=== PATIENT | male | born 1945 | race Two or more races ===

== ENCOUNTER 2022-05-18 22:18 | Inpatient (IN) | payer MEDICARE, OTHER ==
[~2022-05-18] VITALS: Ht 165.1 cm; Wt 68.1 kg
[~2022-05-18 22:18] MED LIST: AMLO-213 PO; CARV25TA2 PO; FERR1TAB44 PO; FURO40TA5 PO; HYDR-4077 PO; LANS30TA4 PO; LEVO750T21 PO; LOSA100T31 PO; WARF4TAB72 PO
--- NOTE | 2022-05-18 22:40 | NUR ---
RT NOTE PT BROUGHT IN FOR SOB. PT PLACED ON BIPAP TRIAL PER CHERYL ORDER FOR POSSIBLE CHF EXACERBATION. NO DISTRESS ON BIPAP. SETTINGS 09/11 R12 40%. Addendum: 05/19/22 at 0015 by JOSH ISBELL RT Amended: Links added.
[2022-05-18 23:55] LABS: BASOPHILS % (AUTO) 0.6 % (0.0-2.0); EOSINOPHILS % (AUTO) 1.3 % (0.0-6.0); HEMATOCRIT 33 % (39-51); HEMOGLOBIN 9.9 g/dL (13.5-17.5); LYMPHOCYTES # (AUTO) 2.1 K/uL (0.8-4.8); MEAN CORPUSCULAR HGB CONC 30 g/dl (31.0-36.0); MEAN CORPUSCULAR VOLUME 70 fL (80-96); MONOCYTES # (AUTO) 0.8 K/uL (0.1-1.30); MONOCYTES % (AUTO) 9.5 % (2.0-12.0); NEUTROPHILS # (AUTO) 5.3 K/uL (1.8-8.9); NEUTROPHILS % (AUTO) 63.6 % (43.0-81.0); PLATELET COUNT (AUTO) 205 K/uL (150-450); RED BLOOD CELL COUNT(AUTO) 4.65 MIL/uL (4.5-6.0); WHITE BLOOD COUNT (AUTO) 8.3 K/uL (4.3-11.0)
[2022-05-19 00:30] LABS: CALCIUM, SERUM 8.8 mg/dL (8.5-10.1); CARBON DIOXIDE 26 mmol/L (21-32); CHLORIDE 121 mmol/L (98-107); CREATININE 1.6 mg/dL (0.6-1.3); GLUCOSE 99 mg/dL (74-106); POTASSIUM 4.5 mmol/L (3.5-5.1); SODIUM SERUM 143 mmol/L (136-145); UREA NITROGEN, BLOOD 32 mg/dL (7-18)
[2022-05-19] MEDS ORDERED: FUROSEMIDE 40 MG/4 ML VIAL IV ONE (01:30)
--- NOTE | 2022-05-19 02:28 | NUR ---
BIBRA 71 FOR SOB AND WHEEZING REC'D 5 MG OF ALBUTEROL CONTACT ACID PLANT OPERATOR. PATIENT ALERT AND ORIENTED X3. AMBULATORY AND IN BED 09 ON MONITOR AND POX. RT CALLED.
--- NOTE | 2022-05-19 02:31 | NUR ---
RT AT BEDSIDE SETTING UP BIPAP
--- NOTE | 2022-05-19 02:35 | NUR ---
ER SCHOOL LIBRARIAN AT BEDSIDE FOR BLOOD DRAW
--- NOTE | 2022-05-19 02:40 | NUR ---
COVID SWAB DONE AND SENT TO LAB
[2022-05-19] MEDS ORDERED: MAGNESIUM HYDROXIDE 30 ML UDC PO PRN (03:30)
[2022-05-19] MEDS ORDERED: MAG HYDROX/AL HYDROX/SIMETH 30 ML UDC PO PRN (03:30)
[2022-05-19] MEDS ORDERED: Z GUARD REMEDY 4 OZ OINT TP PRN (03:30)
[2022-05-19] MEDS ORDERED: ZOLPIDEM TARTRATE 5 MG TABLET PO PRN (03:30)
[2022-05-19] MEDS ORDERED: MORPHINE SULFATE INJ 2 MG/ML DISP.SYRIN IV PRN (03:30)
[2022-05-19] MEDS ORDERED: ONDANSETRON HCL/PF 4 MG/2 ML VIAL IVP PRN (03:30)
[2022-05-19] MEDS ORDERED: DEXTROSE 50%-WATER 50 ML DISP.SYRIN IV PRN (03:30)
[2022-05-19] MEDS ORDERED: ACETAMINOPHEN 325 MG TABLET PO PRN (03:30)
--- NOTE | 2022-05-19 03:40 | NUR ---
PATIENT REFUSING BLOOD DRAW, NOTIFIED.
--- NOTE | 2022-05-19 03:45 | NUR ---
BIPAP SETTING: MODE: ST IPAP: 15 RATE: 12 TIME: 1.00 SECS RISE:3 EPAP: 5 O2: 40% vt: 508 VE: 10.8 PIP: 15
[2022-05-19] MEDS ORDERED: FUROSEMIDE 40 MG/4 ML VIAL ONE ×2 (04:48→09:00)
[2022-05-19 05:30] LABS: BASOPHILS # (AUTO) 0.1 K/uL (0.0-0.2); BASOPHILS % (AUTO) 0.8 % (0.0-2.0); EOSINOPHILS % (AUTO) 1.8 % (0.0-6.0); HEMATOCRIT 31 % (39-51); HEMOGLOBIN 9.5 g/dL (13.5-17.5); LYMPHOCYTES # (AUTO) 1.7 K/uL (0.8-4.8); LYMPHOCYTES % (AUTO) 22.7 % (20.0-44.0); MEAN CORPUSCULAR HGB CONC 31 g/dl (31.0-36.0); MEAN CORPUSCULAR VOLUME 69 fL (80-96); MONOCYTES # (AUTO) 0.6 K/uL (0.1-1.30); MONOCYTES % (AUTO) 8.5 % (2.0-12.0); NEUTROPHILS # (AUTO) 4.9 K/uL (1.8-8.9); NEUTROPHILS % (AUTO) 66.2 % (43.0-81.0); PLATELET COUNT (AUTO) 188 K/uL (150-450); RED BLOOD CELL COUNT(AUTO) 4.48 MIL/uL (4.5-6.0); WHITE BLOOD COUNT (AUTO) 7.4 K/uL (4.3-11.0)
[2022-05-19 05:46] LABS: CALCIUM, SERUM 8.7 mg/dL (8.5-10.1); CARBON DIOXIDE 26 mmol/L (21-32); CHLORIDE 112 mmol/L (98-107); CREATININE 1.5 mg/dL (0.6-1.3); GLUCOSE 76 mg/dL (74-106); MAGNESIUM 2.4 mg/dL (1.8-2.4); POTASSIUM 4.6 mmol/L (3.5-5.1); SODIUM SERUM 144 mmol/L (136-145); UREA NITROGEN, BLOOD 29 mg/dL (7-18)
[2022-05-19 05:51] LABS: IRON, SERUM 20 ug/dl (50-175); TOTAL IRON BINDING CAPACITY 411 ug/dl (250-450)
[2022-05-19 05:57] LABS: CHOLESTEROL 125 mg/dL (<200); HDL CHOLESTEROL 53 mg/dL (40-60); LDL 68 mg/dL (0-99); TRIGLYCERIDES 45 mg/dL (30-150)
--- NOTE | 2022-05-19 08:28 | NUR ---
Pt able to get OOB-BRP. States "feeling better. Breathe easier". RA sats 97%. BiPap weaned off- now on O2 2L/NC
[2022-05-19] MEDS: BLOOD SUGAR DIAGNOSTIC 1 EACH STRIP IN SCH ×4 (08:47→21:49)
[2022-05-19] MEDS ORDERED: FERROUS SULFATE (325 MG) 325 MG/TAB TABLET PO SCH (09:00)
[2022-05-19] MEDS ORDERED: CARVEDILOL 12.5 MG TABLET ONE (09:00)
[2022-05-19] MEDS ORDERED: AMLODIPINE BESYLATE 10 MG TABLET ONE (09:01)
[2022-05-19] MEDS ORDERED: ASPIRIN 325 MG TABLET ONE (09:01)
[2022-05-19] MEDS ORDERED: LOSARTAN POTASSIUM 50 MG TABLET ONE (09:01)
[2022-05-19] MEDS: FUROSEMIDE 40 MG/4 ML VIAL IV SCH ×2 (09:14→16:41)
[2022-05-19] MEDS: CARVEDILOL 12.5 MG TABLET PO SCH ×2 (09:15→16:46)
[2022-05-19] MEDS: LOSARTAN POTASSIUM 50 MG TABLET PO SCH (09:20)
[2022-05-19] MEDS: AMLODIPINE BESYLATE 10 MG TABLET PO SCH (09:27)
[2022-05-19] MEDS ORDERED: FERROUS SULFATE (325 MG) 325 MG/TAB TABLET ONE (09:31)
[2022-05-19] MEDS ORDERED: PANTOPRAZOLE 40 MG VIAL ONE (09:34)
[2022-05-19] MEDS ORDERED: hydrALAZINE HCL 50 MG TABLET ONE (09:34)
[2022-05-19] MEDS: PANTOPRAZOLE 40 MG VIAL IV SCH (09:36)
[2022-05-19] MEDS: hydrALAZINE HCL 50 MG TABLET PO SCH ×2 (09:43→16:46)
--- NOTE | 2022-05-19 10:15 | NUR ---
JAVASCRIPT ENGINEER/MED RECON UNABLE TO UPDATE HOME MEDICATION INFORMATION. PATIENT UNABLE TO PROVIDE ANY INFO SUCH PCP/PHARMACY OR INFO. FAMILY INFO IN PATIENT PROFILE NOT UPDATED/UNABLE TO REACH. PRIMARY RN AWARE.
[2022-05-19 12:00] VITALS: BP 109/56
--- NOTE | 2022-05-19 12:05 | NUR ---
GOT BED ASSIGNMENT 324-1
--- NOTE | 2022-05-19 12:16 | NUR ---
REPORT GIVEN TO YOLANDA BOWLES. PT AWAITING TRANSFER TO FLOOR.
--- NOTE | 2022-05-19 12:40 | NUR ---
RN NOTE- PT FROM ED FOR ADMIT. BEGIN ADMISSION PROCESS.
--- NOTE | 2022-05-19 12:45 | NUR ---
RN NOTE / ADMISSION - 77 Y/O MALE BROUGHT INTO ED FOR SOB. PT ADMITTED FOR ACUTE RESP FAILURE. WAS ON BIPAP BUT WEANED OFF. PMHX- HTN, CHF, AFIB, ON COUMADIN, TELE MONITORING. PT ARRIVED TO 324-2 ON OXYGEN AT 2LPM VIA NC. SATS 98%. AOX4, UNDERSTANDS UKRAINIAN TO MAKE NEEDS KNOWN, CHEST W RHONCHI, RALES. CONGESTED, COUGHING. NEBS ORDERED. RT TO GIVE. SKIN INTACT, 2+ PITTING EDEMA BLE. AMBULATORY, SOB W EXERTION. VS- BP 109/56, P 86, R 18, T 98.0. NEEDS ATTENDED, ORDERS RECEIVED. SIDE RAILS UP, BED LOCKED, LUNCH ORDERED. MADE COMFORTABLE. MONITOR / ASSIST
[2022-05-19] MEDS: IPRATROPIUM NEB FS 0.5 MG/2.5 ML AMPUL.NEB NEB SCH ×2 (13:31→20:43)
[2022-05-19 16:00] VITALS: BP 102/69
[2022-05-19] MEDS ORDERED: WARFARIN SODIUM 2 MG TABLET PO SCH (17:00)
[2022-05-19] MEDS: INSULIN REGULAR, HUMAN 100 UNIT/ML 3 ML VIAL SQ PRN ×2 (18:03→21:50)
--- NOTE | 2022-05-19 18:58 | NUR ---
RN CLOSING NOTE PT LAYING IN BED, A/OX4, UNDERSTANDS [place] ENOUGH TO MAKE NEEDS KNOWN. PT ON NC @2L, TELE READING A-FIB CONTROLLED IN S. FOR THORACENTESIS TOMORROW MORNING. LOVENOX AFTER. HOLDING COUMADIN. CARDIOLOGY AND PULMONOLOGY FOLLOWING. SAFETY MEASURES IN PLACE: CALL LIGHT WITHIN REACH, SIDE RAILS UP X 2, BED LOCKED IN LOWEST POSITION. WILL ENDORSE TO SECURITY SYSTEMS MANAGER FOR CONTINUITY OF CARE.
--- NOTE | 2022-05-19 19:30 | NUR ---
PAYROLL ADMINISTRATIVE ASSISTANT OPENING NOTES RECEIVED PATIENT LAYING IN BED ASLEEP, EASY TO AROUSE. A/O X4. CYMRO SPEAKING, UNDERSTANDS SOME [place] ISLANDER. BREATHING EVEN AND NON-LABORED, ON O2 AT 2LPM VIA NASAL CANULA. MILD SOB D/T PULMONARY CONGESTION. NOT IN APPARENT DISTRESS. ON TELE MONITOR READING AFIB AT 81 BPM. HAS RIGHT WRIST IV ACCESS #18G AND SALINE LOCKED. NO S/S OF INFILTRATION NOTED. SAFETY PRECAUTIONS IN PLACE: BED LOW AND LOCKED, SIDE RAILS UP X2, CALL LIGHT WITHIN REACH. WILL CONTINUE POC.
[2022-05-19 20:00] VITALS: BP 100/58
[2022-05-19] MEDS ORDERED: SOD FERRIC GLUC 125 MG in IV NS 0.9% 100 ML IV SCH ×2 (20:00→20:03)
[2022-05-19] MEDS: SOD FERRIC GLUC 125 MG in IV NS 0.9% 100 ML IV SCH (21:28)
--- NOTE | 2022-05-19 21:48 | NUR ---
LAW ENFORCEMENT DIRECTOR NOTES CHARGE NURSE AND RN COVER OPERATOR AWARE ADMIT TO ICU/CCU D/T BIPAP USE. HOWEVER, PATIENT IS OFF BIPAP NOW AND STABLE. CN WILL ENDORSE TO AM SHIFT FOR ORDER TO TRANSFER TO TELE.
--- NOTE | 2022-05-19 21:58 | NUR ---
INSULATION CUTTER AND FORMER NOTES BS 117, NO INSULIN COVERAGE GIVEN.
[2022-05-20] VITALS (7 sets, daily range): BP systolic 95–135; BP diastolic 57–80
[2022-05-20] MEDS: IPRATROPIUM NEB FS 0.5 MG/2.5 ML AMPUL.NEB NEB SCH ×4 (01:14→20:36)
[2022-05-20 05:59] LABS: BASOPHILS % (AUTO) 0.8 % (0.0-2.0); EOSINOPHILS % (AUTO) 1.5 % (0.0-6.0); HEMATOCRIT 31 % (39-51); HEMOGLOBIN 9.5 g/dL (13.5-17.5); LYMPHOCYTES # (AUTO) 1.3 K/uL (0.8-4.8); LYMPHOCYTES % (AUTO) 22.1 % (20.0-44.0); MEAN CORPUSCULAR HGB CONC 31 g/dl (31.0-36.0); MEAN CORPUSCULAR VOLUME 70 fL (80-96); MONOCYTES # (AUTO) 0.6 K/uL (0.1-1.30); MONOCYTES % (AUTO) 10.1 % (2.0-12.0); NEUTROPHILS # (AUTO) 3.9 K/uL (1.8-8.9); NEUTROPHILS % (AUTO) 65.5 % (43.0-81.0); PLATELET COUNT (AUTO) 182 K/uL (150-450); RED BLOOD CELL COUNT(AUTO) 4.38 MIL/uL (4.5-6.0)
[2022-05-20 06:21] LABS: CALCIUM, SERUM 8.5 mg/dL (8.5-10.1); CARBON DIOXIDE 24 mmol/L (21-32); CHLORIDE 109 mmol/L (98-107); CREATININE 1.8 mg/dL (0.6-1.3); GLUCOSE 83 mg/dL (74-106); MAGNESIUM 2.3 mg/dL (1.8-2.4); PHOSPHORUS 5.5 mg/dL (2.5-4.9); SODIUM SERUM 142 mmol/L (136-145); UREA NITROGEN, BLOOD 31 mg/dL (7-18)
[2022-05-20] MEDS: BLOOD SUGAR DIAGNOSTIC 1 EACH STRIP IN SCH ×4 (06:55→21:16)
[2022-05-20] MEDS: INSULIN REGULAR, HUMAN 100 UNIT/ML 3 ML VIAL SQ PRN ×4 (06:56→21:18)
--- NOTE | 2022-05-20 07:04 | NUR ---
HOUSEKEEPER AND LAUNDRY ASSISTANT CLOSING NOTES PATIENT SLEEPING COMFORTABLY, HOB ELEVATED. ABLE TO VERBALIZE SOME NEEDS. STABLE THROUGHOUT THE SHIFT. NO CARDIAC OR RESPIRATORY DISTRESS NOTED. AFEBRILE. ON TELE MONITOR READING AFIB WITH OCCASIONAL PVC AT 77 BPM. RIGHT WRIST IV ACCESS LEAKING, REMOVED. REQUESTED FOR MIDLINE FROM MD SINCE PT IS HARD STICK. ALL DUE MEDS GIVEN AND NEEDS ATTENDED. SAFETY PRECAUTIONS MAINTAINED. WILL ENDORSE TO NEXT SHIFT FOR MIGUEL.
--- NOTE | 2022-05-20 07:20 | NUR ---
APRON WORKER OPENING NOTES RECEIVED PATIENT AWAKE IN BED IN NO ACUTE SIGNS OF DISTRESS. A/O X4. ANGOLAN SPEAKING, UNDERSTANDS SOME [place], DENIES PAIN OR ANY DISCOMFORTS AT THIS TIME. ON O2 AT 2LPM VIA N/C, TOLERATING WELL, BREATHING EVEN AND NON-LABORED. ON TELE MONITOR WITH CURRENT READING OF A-FIB CONTROLLED, HR 78 BPM, NO C/O CARDIAC DISTRESS VOICED AT THIS TIME. PT HAS NO IV ACCESS AT THIS TIME, REPORTED THAT HE'S HARD STICK AND MIDLINE WAS REQUESTED BY PREVIOUS RN TO MD. SAFETY PRECAUTIONS IN PLACE: BED IN LOWEST LOCKED POSITION, SIDE RAILS UP X2 AND CALL LIGHT WITHIN REACH. WILL CONTINUE WITH PLAN OF CARE.
--- NOTE | 2022-05-20 08:00 | NUR ---
RN NOTES INSERTED NEW IV ACCESS ON RIGHT HAND G#22 AND SECURELY TAPED.
[2022-05-20 08:14] LABS: EOSINOPHILS % (MANUAL) 3 % (0-4); LYMPHOCYTES % (MANUAL) 26 % (16-48); MONOCYTES % (MANUAL) 7 % (0-11.0); NEUTROPHILS % (MANUAL) 64 (42-76)
[2022-05-20] MEDS: PANTOPRAZOLE 40 MG VIAL IV SCH (08:32)
[2022-05-20] MEDS: FUROSEMIDE 40 MG/4 ML VIAL IV SCH ×2 (08:34→16:45)
[2022-05-20] MEDS: CARVEDILOL 12.5 MG TABLET PO SCH ×2 (08:35→16:57)
[2022-05-20] MEDS: hydrALAZINE HCL 50 MG TABLET PO SCH ×2 (08:35→16:56)
[2022-05-20] MEDS: LOSARTAN POTASSIUM 50 MG TABLET PO SCH (08:36)
[2022-05-20] MEDS: AMLODIPINE BESYLATE 10 MG TABLET PO SCH (08:37)
--- NOTE | 2022-05-20 09:35 | NUR ---
RN NOTES PT S/P U/S GUIDED THORACENTESIS ON RIGHT LUNG WITH 1,5000 CLEAR SLIGHTLY DARK YELLOW DRAINAGE REMOVED. STAT CXR ORDERED. SPECIMEN BROUGHT TO LAB..
[2022-05-20] MEDS: SOD FERRIC GLUC 125 MG in IV NS 0.9% 100 ML IV SCH (14:39)
[2022-05-20] MEDS ORDERED: WARFARIN SODIUM 5 MG TABLET PO SCH (17:00)
--- NOTE | 2022-05-20 18:37 | NUR ---
SHEEP RANCHER CLOSING NOTES PATIENT IN BED AWAKE AND RESTING AT MODERATE HIGH BACKREST POSITION, WATCHING TV AT THIS TIME. A/O X4. SERBIAN SPEAKING, UNDERSTANDS MINIMAL TAJIK. ON O2 AT 2LPM VIA N/C, TOLERATING WELL, BREATHING EVEN AND NON-LABORED. ON TELE MONITOR WITH CURRENT READING OF A-FIB CONTROLLED, HR 76 BPM, NO C/O CARDIAC DISTRESS VOICED DURING SHIFT. IV ACCESS ON RIGHT HAND G#22 INTACT, PATENT AND FLUSHES WELL. ALL NEEDS AND CARE ATTENDED WELL.SAFETY MEASURES KEPT IN PLACE: BED IN LOWEST LOCKED POSITION, SIDE RAILS UP X2, TRAY TABLE AND CALL LIGHT WITHIN REACH OF PT. WILL ENDORSE MIGUEL TO CYLINDER BLOCK HOLE RELINER NURSE.
--- NOTE | 2022-05-20 19:30 | NUR ---
CLINICAL BIOCHEMIST OPENING NOTES RECEIVED PATIENT LAYING IN BED AWAKE, HOB ELEVATED. A/O X4, NO ANXIETY NOTED. BREATHING EVEN AND NON-LABORED, ON O2 AT 2LPM VIA NASAL CANULA. NOT IN APPARENT DISTRESS. DENIES PAIN AT THIS TIME. ON TELE MONITOR READING AFIB AT 75 BPM. HAS RIGHT HAND IV ACCESS #22G AND SALINE LOCKED. NO S/S OF INFILTRATION NOTED. S/P US GUIDED THORACENTESIS OF RIGHT LUNG, NO BLEEDING NOTED ON PUNCTURE SITE. SAFETY PRECAUTIONS IN PLACE: BED LOW AND LOCKED, SIDE RAILS UP X2, CALL LIGHT WITHIN REACH. WILL CONTINUE POC.
--- NOTE | 2022-05-20 21:31 | NUR ---
BRIDAL SALES CONSULTANT NOTES CORRECTION: BS 152, STILL WITHIN THE SAME INSULIN RANGE, 2 UNITS GIVEN.
--- NOTE | 2022-05-20 23:55 | NUR ---
RN NOTES REPORT PROVIDED BY RN, NOVEMBER. PATIENT STABLE. NO S/SX OF RESPIRATORY DISTRESS NOTED.
[2022-05-21] VITALS (8 sets, daily range): BP systolic 103–134; BP diastolic 45–98
[2022-05-21] MEDS: IPRATROPIUM NEB FS 0.5 MG/2.5 ML AMPUL.NEB NEB SCH ×4 (01:30→20:40)
[2022-05-21 05:56] LABS: BASOPHILS % (AUTO) 0.4 % (0.0-2.0); EOSINOPHILS % (AUTO) 2.3 % (0.0-6.0); HEMATOCRIT 30 % (39-51); HEMOGLOBIN 9.4 g/dL (13.5-17.5); LYMPHOCYTES # (AUTO) 1.2 K/uL (0.8-4.8); LYMPHOCYTES % (AUTO) 20.8 % (20.0-44.0); MEAN CORPUSCULAR HGB CONC 31 g/dl (31.0-36.0); MEAN CORPUSCULAR VOLUME 69 fL (80-96); MONOCYTES # (AUTO) 0.5 K/uL (0.1-1.30); MONOCYTES % (AUTO) 8.4 % (2.0-12.0); NEUTROPHILS # (AUTO) 3.8 K/uL (1.8-8.9); NEUTROPHILS % (AUTO) 68.1 % (43.0-81.0); PLATELET COUNT (AUTO) 196 K/uL (150-450); RED BLOOD CELL COUNT(AUTO) 4.36 MIL/uL (4.5-6.0); WHITE BLOOD COUNT (AUTO) 5.5 K/uL (4.3-11.0)
[2022-05-21] MEDS: BLOOD SUGAR DIAGNOSTIC 1 EACH STRIP IN SCH ×4 (06:43→22:55)
[2022-05-21] MEDS: INSULIN REGULAR, HUMAN 100 UNIT/ML 3 ML VIAL SQ PRN ×4 (06:43→22:54)
--- NOTE | 2022-05-21 06:55 | NUR ---
RN CLOSING NOTES RECEIVED PT IN BED, ASLEEP ON SIDE, AWAKENS TO VERBAL STIMULI. AOx4, ABLE TO MAKE NEEDS KNOWN. ON NC 2LPM AND TOLERATING WELL. NO SOB NOTED. NO S/SX OF RESPIRATORY DISTRESS NOTED. TELE MONITOR DETECTS AFIB. IV ACCESS IN R HAND #22G. IV ACCESS IS INTACT, PATENT, AND FLUSHING WELL. ALL ORDERS CARRIED OUT. ALL NEEDS MET. PT KEPT CLEAN AND DRY. SAFETY PRECAUTIONS IN PLACE: BED IN LOWEST, LOCKED POSITION, SIDERAILS UPX2, AND BRAKES ON. TABLE AND CALL LIGHT WITHIN REACH. WILL ENDORSE TO ONCOMING SHIFT FOR MIGUEL.
--- NOTE | 2022-05-21 07:24 | NUR ---
COLOR GRINDER OPENING NOTES PATIENT RECEIVED IN BED AWAKE, A/O X4. TUNISIAN SPEAKING, UNDERSTANDS MINIMAL BAHAMIAN, DENIES PAIN OR ANY DISCOMFORTS AT THIS TIME. ON O2 AT 2LPM VIA N/C, TOLERATING WELL, BREATHING EVEN AND UN-LABORED. ON EXTERNAL REPAIRER RESISTANCE WELDING MACHINES WITH CURRENT READING OF A-FIB CONTROLLED, HR 77 BPM, NO C/O CARDIAC DISTRESS VOICED AT THIS TIME. IV ACCESS ON RIGHT HAND #22G, SL, INTACT AND PATENT. SAFETY MEASURES IN PLACE: BED IN LOWEST LOCKED POSITION, SIDE RAILS UP X2, TRAY TABLE AND CALL LIGHT WITHIN REACH. WILL CONTINUE TO MONITOR PT ACCORDINGLY.
[2022-05-21 07:28] LABS: CALCIUM, SERUM 8.4 mg/dL (8.5-10.1); CARBON DIOXIDE 25 mmol/L (21-32); CHLORIDE 107 mmol/L (98-107); CREATININE 2.3 mg/dL (0.6-1.3); GLUCOSE 119 mg/dL (74-106); MAGNESIUM 2.1 mg/dL (1.8-2.4); PHOSPHORUS 4.6 mg/dL (2.5-4.9); POTASSIUM 3.2 mmol/L (3.5-5.1); SODIUM SERUM 141 mmol/L (136-145); UREA NITROGEN, BLOOD 36 mg/dL (7-18)
[2022-05-21] MEDS: PANTOPRAZOLE 40 MG/PACK PACK PO SCH (08:29)
[2022-05-21] MEDS: LOSARTAN POTASSIUM 50 MG TABLET PO SCH (08:30)
[2022-05-21] MEDS: AMLODIPINE BESYLATE 10 MG TABLET PO SCH (08:30)
[2022-05-21] MEDS: hydrALAZINE HCL 50 MG TABLET PO SCH ×2 (08:31→16:30)
[2022-05-21] MEDS: CARVEDILOL 12.5 MG TABLET PO SCH ×2 (08:31→16:29)
[2022-05-21] MEDS ORDERED: [UNRECOGNIZED DRUG - OTHER] PO (08:53)
[2022-05-21] MEDS ORDERED: ENOX40DI SQ (08:55)
[2022-05-21 09:16] LABS: EOSINOPHILS % (MANUAL) 3 % (0-4); LYMPHOCYTES % (MANUAL) 20 % (16-48); MONOCYTES % (MANUAL) 6 % (0-11.0); NEUTROPHILS % (MANUAL) 71 (42-76)
--- NOTE | 2022-05-21 09:28 | NUR ---
RN NOTES PT NOTED WITH LOW POTASSIUM 3.[address] ADAMS MADE AWARE WITH ORDER TO GIVE K-DUR 40MEQ P.O. WILL CARRY OUT ORDER.
[2022-05-21] MEDS ORDERED: POTASSIUM CHLORIDE 20 MEQ TAB.PRT.SR PO ONE (09:30)
[2022-05-21] MEDS: SOD FERRIC GLUC 125 MG in IV NS 0.9% 100 ML IV SCH (14:38)
[2022-05-21] MEDS: WARFARIN SODIUM 5 MG TABLET PO SCH (16:31)
--- NOTE | 2022-05-21 18:39 | NUR ---
DAIRY NUTRITIONIST CLOSING NOTES PATIENT IN BED TALKING TO SOMEBODY ON HIS CELLPHONE. A/O X4. THAI SPEAKING, UNDERSTANDS MINIMAL SPANISH. AMBULATORY WITH STEADY GAIT. ON SUPPLEMENTAL O2 AT 2LPM VIA N/C, TOLERATING WELL, BREATHING EVEN AND NON-LABORED. ON TELE-MONITOR WITH CURRENT READING OF A-FIB CONTROLLED, HR 82 BPM, NO C/O CARDIAC DISTRESS VOICED DURING SHIFT. IV ACCESS ON RIGHT HAND G#22 INTACT, PATENT AND FLUSHES WELL. ALL NEEDS AND CARE ATTENDED WELL.SAFETY MEASURES KEPT IN PLACE: BED IN LOWEST LOCKED POSITION, SIDE RAILS UP X2, TRAY TABLE AND CALL LIGHT WITHIN REACH OF PT. WILL ENDORSE MIGUEL TO OVENS SUPERVISOR NURSE.
--- NOTE | 2022-05-21 19:36 | NUR ---
PUNCHER AND FASTENER OPENING NOTES: RECEIVED PATIENT AWAKE IN BED, BED IN LOW POSITION, CALL LIGHTS WITHIN REACH, NO COMPLAIN OF PAIN AND DISCOMFORT AT THIS TIME =, ON ROOM AIR SATURATING WELL, ON TELE MONITOR AFIB-81 CONTROLLED, PATIENT IS A/OX4 PORTUGUESE SPEAKING, KEPT CLEAN AND DRY ALL NEEDS MET WILL CONTINUE TO MONITOR.
[2022-05-22] VITALS (8 sets, daily range): BP systolic 110–139; BP diastolic 56–80
[2022-05-22] MEDS: IPRATROPIUM NEB FS 0.5 MG/2.5 ML AMPUL.NEB NEB SCH ×4 (01:43→19:30)
--- NOTE | 2022-05-22 06:34 | NUR ---
RN NOTES: PATIENT REFUSED BLOOD DRAWN FOR AM LABS EXPLAIN RISK AND BENEFITS BUT PATIENT CONSISTENTLY REFUSED, ADVISED TO COME BACK LATER FOR POSSIBLE ATTEMPT.
--- NOTE | 2022-05-22 06:36 | NUR ---
SKILLS INSTRUCTOR CLOSING NOTES: PATIENT SLEEP IN BED COMFORTABLY, AROUSABLE TO VERBAL STIMULI, BED IN LOW POSITION CALL LIGHTS WITHIN REACH, NO COMPLAIN OF PAIN AND DISCOMFORT AT THIS TIME ON O2 INHALATION AT 2LPM SATURATING WELL, ON TELE MONITOR-CONTROLLED AFIB-83, PATIENT IS A/OX3-4 AMBULATORY AND ABLE TO MAKE NEEDS KNOWN, KEPT CLEAN AND DRY ALL NEEDS MET ENDORSE TO INCOMING SHIFT.
[2022-05-22] MEDS: BLOOD SUGAR DIAGNOSTIC 1 EACH STRIP IN SCH ×4 (06:40→22:10)
--- NOTE | 2022-05-22 07:35 | NUR ---
RN OPENING NOTE- PATIENT AWAKE IN BED, BED IN LOW POSITION, CALL LIGHTS WITHIN REACH, NO COMPLAIN OF PAIN AND DISCOMFORT AT THIS TIME , ON ROOM AIR SATURATING WELL, ON TELE MONITOR AFIB- CONTROLLED, PATIENT IS A/OX4 [place] SPEAKING, KEPT CLEAN AND DRY ALL NEEDS MET WILL CONTINUE TO MONITOR / ASSIST. 02 AT 2LPM VIA NC. SATS 97%
[2022-05-22] MEDS: AMLODIPINE BESYLATE 10 MG TABLET PO SCH (08:39)
[2022-05-22] MEDS: hydrALAZINE HCL 50 MG TABLET PO SCH ×2 (08:39→16:51)
[2022-05-22] MEDS: PANTOPRAZOLE 40 MG/PACK PACK PO SCH (08:39)
[2022-05-22] MEDS: CARVEDILOL 12.5 MG TABLET PO SCH ×2 (08:39→16:51)
[2022-05-22] MEDS: LOSARTAN POTASSIUM 50 MG TABLET PO SCH (08:39)
[2022-05-22 09:14] LABS: BASOPHILS % (AUTO) 0.5 % (0.0-2.0); EOSINOPHILS % (AUTO) 1.9 % (0.0-6.0); HEMATOCRIT 33 % (39-51); HEMOGLOBIN 9.7 g/dL (13.5-17.5); LYMPHOCYTES # (AUTO) 1.2 K/uL (0.8-4.8); LYMPHOCYTES % (AUTO) 22.6 % (20.0-44.0); MEAN CORPUSCULAR HGB CONC 30 g/dl (31.0-36.0); MEAN CORPUSCULAR VOLUME 73 fL (80-96); MONOCYTES # (AUTO) 0.5 K/uL (0.1-1.30); MONOCYTES % (AUTO) 9.9 % (2.0-12.0); NEUTROPHILS # (AUTO) 3.5 K/uL (1.8-8.9); NEUTROPHILS % (AUTO) 65.1 % (43.0-81.0); PLATELET COUNT (AUTO) 172 K/uL (150-450); RED BLOOD CELL COUNT(AUTO) 4.51 MIL/uL (4.5-6.0); WHITE BLOOD COUNT (AUTO) 5.4 K/uL (4.3-11.0)
[2022-05-22 09:28] LABS: ALANINE AMINOTRANSFERASE 21 U/L (12-78); ALBUMIN 2.6 g/dL (3.4-5.0); ALKALINE PHOSPHATASE 39 U/L (46-116); ASPARTATE AMINOTRANSFERASE 25 U/L (15-37); BILIRUBIN,TOTAL 0.5 mg/dL (0.2-1.0); CALCIUM, SERUM 8.6 mg/dL (8.5-10.1); CARBON DIOXIDE 22 mmol/L (21-32); CHLORIDE 108 mmol/L (98-107); CREATININE 2.1 mg/dL (0.6-1.3); GLUCOSE 153 mg/dL (74-106); MAGNESIUM 2.2 mg/dL (1.8-2.4); PHOSPHORUS 3.7 mg/dL (2.5-4.9); POTASSIUM 3.2 mmol/L (3.5-5.1); SODIUM SERUM 138 mmol/L (136-145); TOTAL PROTEIN, SERUM 6.3 g/dL (6.4-8.2); UREA NITROGEN, BLOOD 33 mg/dL (7-18)
[2022-05-22] MEDS: INSULIN REGULAR, HUMAN 100 UNIT/ML 3 ML VIAL SQ PRN ×3 (11:27→22:32)
[2022-05-22] MEDS: SOD FERRIC GLUC 125 MG in IV NS 0.9% 100 ML IV SCH (14:11)
[2022-05-22 14:22] LABS: EOSINOPHILS % (MANUAL) 6 % (0-4); LYMPHOCYTES % (MANUAL) 26 % (16-48); MONOCYTES % (MANUAL) 9 % (0-11.0); NEUTROPHILS % (MANUAL) 59 (42-76)
--- NOTE | 2022-05-22 15:44 | NUR ---
RN NOTE- IV INFILTRATED. IV REMOVED. ICE PACK APPLIED. ELEVATED, DC HELD BECAUSE OF ELEVATED CREAT. PER DR ADAMS
[2022-05-22] MEDS: WARFARIN SODIUM 5 MG TABLET PO SCH (17:00)
--- NOTE | 2022-05-22 17:27 | NUR ---
RECEIVED PATIENT ON 2LNC SATURATIONS AT 99%. Q6 HHN TXS CHANCE WELL WITH NO ADVERSE REACTION NOTED. PATIENT LEFT ON ROOM AIR POST HHN TX. CHANCE WELL WITH NO DESATURATION AND SOB NOTED.
--- NOTE | 2022-05-22 18:23 | NUR ---
RN CLOSING NOTE- PATIENT AWAKE IN BED, BED IN LOW POSITION, CALL LIGHTS WITHIN REACH, NO COMPLAIN OF PAIN AND DISCOMFORT AT THIS TIME , ON ROOM AIR SATURATING WELL, ON TELE MONITOR AFIB- CONTROLLED, IV INFILTRATED EARLIER, REMOVED, NO FURTHER NEED FOR IV. WILL DC TOMORROW . DC HELD TODAY DUE TO CREATININE. INR DRAWN FOR COUMADIN ADMINISTRATION. AWAITING RESULTS. PATIENT IS A/OX4 TAJIK SPEAKING, KEPT CLEAN AND DRY ALL NEEDS MET WILL CONTINUE TO MONITOR / ASSIST.
--- NOTE | 2022-05-22 19:09 | NUR ---
RN NOTE- INR 3.88. COUMADIN HELD. NOC SHIFT RN WILL NOTIFY
--- NOTE | 2022-05-22 19:35 | NUR ---
METAL ENGRAVER OPENING NOTE RECEIVED PATIENT IN BED; AWAKE, ALERT AND ORIENTED X 4. BREATHING EVEN AND NONLABORED. ON ROOM AIR; TOLERATING WELL. NOT IN ANY FORM OF RESPIRATORY DISTRESS. DENIES ANY PAIN OR DISCOMFORT AT THIS TIME. NO IV ACCESS. ABLE TO MAKE NEEDS KNOWN. SAFETY PRECAUTIONS IMPLEMENTED: CALL LIGHT AND TABLE WITHIN EASY REACH, SIDE RAILS UP X 2, BED IN LOWEST LOCKED POSITION. WILL CONTINUE PLAN OF CARE.
--- NOTE | 2022-05-22 19:36 | NUR ---
RN NOTE ON TELEMETRY MONITORING WITH CURRENT READING OF A. FIBRILLATION CONTROLLED HR-87 BPM.
--- NOTE | 2022-05-22 21:23 | NUR ---
RN NOTE PATIENT INR - 3.88; POTASSIUM - 3.2; DR JASON PEDRO LOBSTER MAN HOSPITALIST MADE AWARE. WITH ORDER TO REPLACE POTASSIUM AND CARRIED OUT.
--- NOTE | 2022-05-22 21:46 | NUR ---
RN NOTE PATIENT COMPLAINED OF MILD PAIN 3/10 PAIN SCALE ON HIS LEFT LOWER ABDOMEN; TYLENOL 650 MG PO GIVEN ORDERED. WILL CONTINUE TO MONITOR AND REASSESS PT.
[2022-05-22] MEDS ORDERED: POTASSIUM CHLORIDE 20 MEQ TAB.PRT.SR PO ONE (22:00)
--- NOTE | 2022-05-22 22:32 | NUR ---
RN NOTE BLOOD SUGAR CHECKED - 191 MG/DL. 3 UNITS OF REGULAR INSULIN GIVEN SQ ORDERED PER SLIDING SCALE. WILL CONTINUE TO MONITOR FOR S/S OF HYPOGLYCEMIA/HYPERGLYCEMIA.
[2022-05-23] VITALS: BP 131/73
[2022-05-23] MEDS: IPRATROPIUM NEB FS 0.5 MG/2.5 ML AMPUL.NEB NEB SCH ×2 (01:30→08:19)
[2022-05-23 04:00] VITALS: BP 120/70
[2022-05-23 04:04] VITALS: BP 120/70
[2022-05-23 06:28] LABS: BASOPHILS % (AUTO) 0.7 % (0.0-2.0); EOSINOPHILS % (AUTO) 1.9 % (0.0-6.0); HEMATOCRIT 30 % (39-51); HEMOGLOBIN 9.2 g/dL (13.5-17.5); LYMPHOCYTES # (AUTO) 1.2 K/uL (0.8-4.8); LYMPHOCYTES % (AUTO) 19.4 % (20.0-44.0); MEAN CORPUSCULAR HGB CONC 31 g/dl (31.0-36.0); MEAN CORPUSCULAR VOLUME 69 fL (80-96); MONOCYTES # (AUTO) 0.5 K/uL (0.1-1.30); MONOCYTES % (AUTO) 8.7 % (2.0-12.0); NEUTROPHILS # (AUTO) 4.3 K/uL (1.8-8.9); NEUTROPHILS % (AUTO) 69.3 % (43.0-81.0); PLATELET COUNT (AUTO) 176 K/uL (150-450); RED BLOOD CELL COUNT(AUTO) 4.27 MIL/uL (4.5-6.0); WHITE BLOOD COUNT (AUTO) 6.2 K/uL (4.3-11.0)
[2022-05-23] MEDS: BLOOD SUGAR DIAGNOSTIC 1 EACH STRIP IN SCH (06:44)
[2022-05-23] MEDS: INSULIN REGULAR, HUMAN 100 UNIT/ML 3 ML VIAL SQ PRN (06:45)
[2022-05-23 06:46] LABS: CALCIUM, SERUM 8.6 mg/dL (8.5-10.1); CARBON DIOXIDE 25 mmol/L (21-32); CHLORIDE 110 mmol/L (98-107); CREATININE 1.8 mg/dL (0.6-1.3); GLUCOSE 91 mg/dL (74-106); MAGNESIUM 2.2 mg/dL (1.8-2.4); PHOSPHORUS 3.4 mg/dL (2.5-4.9); POTASSIUM 3.7 mmol/L (3.5-5.1); SODIUM SERUM 140 mmol/L (136-145); UREA NITROGEN, BLOOD 32 mg/dL (7-18)
--- NOTE | 2022-05-23 06:50 | NUR ---
ENVIRONMENTAL ANALYST CLOSING NOTE PATIENT IN BED; AWAKE, A/O X 4. ON O2 INHALATION @ 2 LPM VIA NASAL CANNULA; TOLERATING WELL. IN NO ACUTE DISTRESS. DENIES ANY PAIN OR DISCOMFORT AT THIS TIME. ON TELE MONITORING WITH CURRENT READING OF A. FIBRILLATION CONTROLLED HR-89 BPM. NO IV ACCESS. ALL NEEDS ATTENDED. SAFETY PRECAUTIONS MAINTAINED: CALL LIGHT AND TABLE WITHIN EASY REACH, SIDE RAILS UP X 2, BED IN LOWEST LOCKED POSITION. ENDORSED TO WILBUR SUAREZ FOR MIGUEL.
[2022-05-23 07:00] VITALS: BP 116/74
--- NOTE | 2022-05-23 07:51 | NUR ---
READING TUTOR OPENING NOTE RECEIVED PATIENT IN BED; AWAKE, ALERT AND ORIENTED X 4, ABLE TO VERBALIZE NEEDS. [place] SP WITH SOME MOH[place]K. BREATHING EVEN AND NONLABORED, ON 2 L OF O2 VIA NC FOR COMFORT, TOLERATING WELL. DENIES PAIN AT THIS TIME AND NO S/S OF ACUTE DISTRESS NOTED. NO IV ACCESS CURRENTLY, ENDORESED BY PM SHIFT. PT DECLINED IV INSERTION FOR NOW. SAFETY PRECAUTIONS IMPLEMENTED: CALL LIGHT AND TABLE WITHIN EASY REACH, SIDE RAILS UP X 2, BED IN LOWEST LOCKED POSITION, WILL CONTINUE PLAN OF CARE DURING SHIFT.
[2022-05-23] MEDS: hydrALAZINE HCL 50 MG TABLET PO SCH (08:37)
[2022-05-23] MEDS: PANTOPRAZOLE 40 MG/PACK PACK PO SCH (08:37)
[2022-05-23] MEDS: AMLODIPINE BESYLATE 10 MG TABLET PO SCH (08:37)
[2022-05-23 08:38] VITALS: BP 116/74
[2022-05-23] MEDS: LOSARTAN POTASSIUM 50 MG TABLET PO SCH (08:38)
[2022-05-23] MEDS: CARVEDILOL 12.5 MG TABLET PO SCH (08:38)
--- NOTE | 2022-05-23 11:50 | NUR ---
CHAIRLIFT OPERATORSUPERVISOR POWDER AND PRIMER CANNING NOTES: PT CLINICALLY CLEARED, STABLE FOR DC. PT VITALS WNL, NO S/S OF SOB OR ACUTE DISTRESS ON RA. DISCUSSED DC INSTRUCTIONS AND NEW MEDICATION WITH PT, MARIJA BLAKE STAFF HELPED TRANSLATE, PT SIGNED DOCS AND VERBALIZED UNDERSTANDING. BELONGINGS RETURNED AND SIGNED. IV ACCESS ALREADY DC'D FROM PREVIOUS SHIFT, ID BAND REMOVED. PT ESCORTED BY STAFF TO LOBBY, PT IS GOING HOME WITH CAREGIVER PEARL VIA PRIVATE CAR.
[2022-05-25] MEDS ORDERED: WARFARIN SODIUM 5 MG TABLET PO SCH (17:00)
== END 2022-05-23 11:50 | disposition home or self-care (01) | DRG 291 ==
LOC: ER 22:20 → TRANSITION 05-19 02:25 → TELE 05-19 12:07
PROVIDERS: ADMIT Nurse Practitioner Acute Care; ATTEND Internal Medicine
PROC: 5A09357 Assistance with Respiratory Ventilation, Less than 24 Consecutive Hours, Continuous Positive Airway Pressure (ICD-10-PCS; principal; 2022-05-19)
PROC: 0W993ZZ Drainage of Right Pleural Cavity, Percutaneous Approach (ICD-10-PCS; 2022-05-20)
DX: I11.0 Hypertensive heart disease with heart failure (principal); I50.23 Acute on chronic systolic (congestive) heart failure; N17.0 Acute kidney failure with tubular necrosis; J96.01 Acute respiratory failure with hypoxia; N13.30 Unspecified hydronephrosis; J90 Pleural effusion, not elsewhere classified; I48.91 Unspecified atrial fibrillation; Z20.822 Contact with and (suspected) exposure to COVID-19; E11.22 Type 2 diabetes mellitus with diabetic chronic kidney disease; N18.9 Chronic kidney disease, unspecified; I13.0 Hypertensive heart and chronic kidney disease with heart failure and stage 1 through stage 4 chronic kidney disease, or unspecified chronic kidney disease; Z79.01 Long term (current) use of anticoagulants; D50.9 Iron deficiency anemia, unspecified; Z79.899 Other long term (current) drug therapy; E87.6 Hypokalemia; I25.10 Atherosclerotic heart disease of native coronary artery without angina pectoris; I34.0 Nonrheumatic mitral (valve) insufficiency
CPT/HCPCS: 36415; 71045-TC; 71250-TC; 76770-TC; 80048-TC; 80053-TC; 80061-TC; 82962-TC; 83540-TC; 83735-TC; 83880; 84100-TC; 84443-TC; 84484-TC; 85025-TC; 85610-TC; 85730-TC; 87081-TC; 87102-TC; 87116; 87206; 89051-TC; 93307-TC; 93970-TC; 94660; 94799-TC; C9113; C9803; G0378; J1815; J1940; J2270; J2405; J2916; J7030; J7050